=== PATIENT | female | born 1985 | race American Indian/Alaskan Native ===

== ENCOUNTER 2016-11-23 04:44 | Emergency (ER) | payer MEDICAID ==
[2016-11-23 06:07] LABS: Alanine Aminotransferase 36 units/L (7-56); Albumin 3.7 g/dL (3.9-5); Albumin/Globulin Ratio 0.9 %; Alkaline Phosphatase 352 units/L (35-129); Anion Gap 18 mmol/L; BUN/Creatinine Ratio 46.66; Bilirubin,Total 0.4 mg/dL (0.1-1.2); Blood Urea Nitrogen 14 mg/dL (7-17); Calcium 9.1 mg/dL (8.4-10.2); Carbon Dioxide 23 mmol/L (22-30); Chloride 103.7 mmol/L (98-107); Glucose 118 mg/dL (65-100); Lipase 113 units/L (13-60); Potassium 3.5 mmol/L (3.6-5.0); Sodium 141 mmol/L (137-145); Total Protein 7.7 g/dL (6.3-8.2)
[2016-11-23 06:47] LABS: Basophils % (Auto) 0.4 % (0.0-1.8); Eosinophils % (Auto) 0.4 % (0.0-4.3); Hematocrit 36.9 % (30.3-42.9); Hemoglobin 12.3 gm/dl (10.1-14.3); Mean Corpuscular HGB Conc 33 % (30-34); Mean Corpuscular Hemoglobin 27 pg (28-32); Mean Corpuscular Volume 81 fl (79-97); Platelet Count 277 K/mm3 (140-440); Red Blood Count 4.55 M/mm3 (3.65-5.03); Red Cell Distribution Width 13.1 % (13.2-15.2); White Blood Count 6.5 K/mm3 (4.5-11.0)
[2016-11-23] MEDS ORDERED: NACL 0.9% 1000 ML 1,000 ML ONE (08:20)
[2016-11-23] MEDS ORDERED: MORPHINE IV ONE (08:21)
[2016-11-23] MEDS ORDERED: ZOFRAN IV ONE (08:22)
[2016-11-23 08:26] LABS: Bilirubin,Urine NEG (Negative); Blood,Urine LG (Negative); Ketones,Urine TR mg/dL (Negative); Leukocyte Esterase,Urine SM (Negative); Mucus,Urine 1+ /HPF; Nitrite,Urine NEG (Negative); Urobilinogen,Urine < 2.0 mg/dL (<2.0)
[2016-11-23 08:27] LABS: RBC,Urine > 182.0 /HPF (0.0-6.0)
[2016-11-23] MEDS ORDERED: NACL 0.9% 1000 ML 1,000 ML IV ONE ×2 (08:28→08:30)
--- NOTE | 2016-11-23 09:01 | Emergency Department Report ---
HPI - General Chief Complaint: Abdominal Pain Time Seen by Provider: 11/23/16 08:11 - HPI HPI: 31-year-old -[place] female transported by [facility] for complaint of abdominal pains 2 hours. Patient denies any nausea vomiting no diarrhea. Patient reports that the pain woke her up there is nothing that alleviates it nothing that makes it worse. She reports that the pain is sharp and it is under her right rib area. ED Past Medical Hx - Past Medical History Previous Medical History?: No Additional medical history: tachycardia - Surgical History Past Surgical History?: No Additional Surgical History: 3 vagianal births - Social History Smoking Status: Never Smoker Substance Use Type: None - Medications Home Medications: Home Medications Medication Instructions Recorded Confirmed Last Taken Type Oxycodone HCl/Acetaminophen 1 each PO Q6HR PRN #30 tablet 09/13/13 Unknown Rx [Percocet 10-325 mg] Prednisone 20 mg PO QDAY #11 tablet 09/13/13 Unknown Rx Prednisone [predniSONE] 5 mg PO QDAY #11 tablet 09/13/13 Unknown Rx Cyclobenzaprine [Flexeril] 10 mg PO TID PRN #20 tablet 05/12/16 Unknown Rx HYDROcodone/APAP 5-325 [[place] 1 each PO Q6HR PRN #12 tablet 11/23/16 Unknown Rx 5/325] Ibuprofen [Motrin 400 MG tab] 400 mg PO Q8H PRN #20 tablet 11/23/16 Unknown Rx Ondansetron [Zofran Odt] 4 mg PO Q8HR #20 tab.rapdis 11/23/16 Unknown Rx ED Review of Systems ROS: Stated complaint: ABDOMINAL PAIN Other details as noted in HPI Physical Exam - Physical Exam Vital Signs: Vital Signs 11/23/16 05:02 Temperature 98 F Pulse Rate 91 H Respiratory 20 Rate Blood Pressure 178/86 [Right] O2 Sat by Pulse 100 Oximetry Physical Exam: GENERAL: Alert and oriented x3, no apparent distress but seems uncomfortable, Normal Gait, atraumatic. HEAD: Head is normocephalic and a-traumatic. EYES: Extra ocular muscles are intact. Pupils are equal, round, and reactive to light and accommodation. MOUTH:Mouth is well hydrated and without lesions. Tonsils nonerythematous or swollen, Uvula midline, Tongue not elevated. Mucous membranes are moist. Posterior pharynx clear, no exudate or lesions. Patent airways. NECK: Supple. Non edematous, No carotid bruits. No lymphadenopathy or thyromegaly. LUNGS: Symetrical with respiration, No wheezing, no rales or crackles, CTAB. HEART: S1, S2 present, regular rate and rhythm without murmur, no rubs, no gallops. ABDOMEN: No organomegaly was noted,Positive bowel sounds, soft, and non- distended. .Tender to palpation on right upper Quadrants, + CVA tenderness right , left GENITOURINARY: External genitalia without erythema, exudate or discharge. Vaginal vault is without discharge. Cervix is of normal color without lesion. Cervical os is closed. No bleeding noted. Uterus is noted to be of normal size and nontender. No cervical motion tenderness. No masses are palpated. The adnexa are without masses or tenderness. EXTREMITIES/MUSCULOSKELETAL: No cyanosis, clubbing, rash, lesions or edema. Full ROM bilaterally. UE/LE Pulses 2+ bilaterally. LE and UE 5+ strength bilaterally NEUROLOGIC: No focal Deficit, Cranial nerves II through XII are grossly intact. No loss of sensation, PSYCHIATRIC: Mood is congruent with affect, denies suicidal or homicidal ideations. SKIN: Warm and dry, No lesions, No ulceration or induration present ED Course Vital Signs 11/23/16 05:02 Temperature 98 F Pulse Rate 91 H Respiratory 20 Rate Blood Pressure 178/86 [Right] O2 Sat by Pulse 100 Oximetry ED Medical Decision Making - Lab Data Result diagrams: 11/23/16 06:36 11/23/16 05:27 - Medical Decision Making 31 Year old female patient presents today with abdominal pain. Labs reveal elevated alkaline phosphatase 352, potassium 3.5 lipase 113. Patient is in no acute distress at this time. She will be discharged home and encouraged to follow up with a primary care provider. She is encouraged to return to the emergency room for any worsening symptoms. She was given IV fluids and Zofran and morphine and then Dilaudid for pain control she had a ultrasound of the right upper quadrant which showed gallstones sludge or lesion of the gallbladder itself there is no obstruction of the bowel ducts. Consult the doctor Jaspal from surgery he recommended that she follow-up in surgery. Critical care attestation.: If time is entered above; I have spent that time in minutes in the direct care of this critically ill patient, excluding procedure time. ED Disposition Clinical Impression: Right upper quadrant abdominal pain Disposition: DISCHARGED TO HOME OR SELFCARE Is pt being admited?: No Does the pt Need Aspirin: No Condition: Stable Instructions: Abdominal Pain (ED) Additional Instructions: Take pain medication as prescribed. Follow up with surgery. Drink plenty of fluids. Prescriptions: HYDROcodone/APAP 5-325 [[place] 5/325] 1 each PO Q6HR PRN #12 tablet PRN Reason: Pain Ibuprofen [Motrin 400 MG tab] 400 mg PO Q8H PRN #20 tablet PRN Reason: Pain Ondansetron [Zofran Odt] 4 mg PO Q8HR #20 tab.rapdis Referrals: PRIMARY CARE, [Primary Care Provider] - 3-5 Days MARIBETH ESTES MD [Staff Physician] - 3-5 Days Forms: Work/School Release Form(ED)
--- NOTE | 2016-11-23 09:20 | Ultrasound Report ---
Ultrasound right upper quadrant. Findings: The abdominal aorta and liver are normal. There are low level echoes within the gallbladder lumen without acoustic shadowing. The wall of gallbladder is not thickened. The common bile duct is normal in caliber. The right kidney and pancreas are unremarkable. Impression: Gall bladder sludge formation which could obscure small stones. No other significant findings.
[2016-11-23 09:49] VITALS: BP 170/84
[2016-11-23] MEDS ORDERED: DILAUDID IV ONE (10:06)
== END 2016-11-23 11:27 | disposition home or self-care (01) ==
LOC: ED 04:44
DX: R10.11 Right upper quadrant pain (principal)
CPT/HCPCS: 36415; 76705; 80053; 81001; 83690; 84703; 85025; 96361; 96374; 96375; 99284; J1170; J2270; J2405; J7030

== ENCOUNTER 2017-09-16 04:27 | Emergency (ER) | payer SELFPAY ==
[2017-09-16 06:57] VITALS: BP 157/73
[2017-09-16 08:21] LABS: Bacteria,Urine 2+ /HPF (Negative); Bilirubin,Urine NEG (Negative); Blood,Urine NEG (Negative); Color,Urine Yellow (Yellow); Mucus,Urine FEW /HPF; Nitrite,Urine NEG (Negative); Protein,Urine <15 mg/dL mg/dL (Negative)
[2017-09-16 08:49] LABS: Basophils % (Auto) 0.5 % (0.0-1.8); Eosinophils # (Auto) 0.1 K/mm3 (0.0-0.4); Eosinophils % (Auto) 1.7 % (0.0-4.3); Hematocrit 38.4 % (30.3-42.9); Hemoglobin 12.9 gm/dl (10.1-14.3); Lymphocytes # (Auto) 1.6 K/mm3 (1.2-5.4); Lymphocytes % (Auto) 22.9 % (13.4-35.0); Mean Corpuscular HGB Conc 34 % (30-34); Mean Corpuscular Hemoglobin 29 pg (28-32); Mean Corpuscular Volume 87 fl (79-97); Monocytes # (Auto) 0.6 K/mm3 (0.0-0.8); Monocytes % (Auto) 7.9 % (0.0-7.3); Platelet Count 283 K/mm3 (140-440); Red Blood Count 4.42 M/mm3 (3.65-5.03); Red Cell Distribution Width 13.2 % (13.2-15.2)
[2017-09-16 09:11] LABS: Alanine Aminotransferase 11 units/L (7-56); Albumin 3.4 g/dL (3.9-5); BUN/Creatinine Ratio 25; Blood Urea Nitrogen 5 mg/dL (7-17); Calcium 8.9 mg/dL (8.4-10.2); Hemolysis Index 8
== END 2017-09-16 09:00 | disposition left against medical advice (07) ==
LOC: ED 04:27
DX: R10.9 Unspecified abdominal pain (principal); Z53.21 Procedure and treatment not carried out due to patient leaving prior to being seen by health care provider
CPT/HCPCS: 36415; 80053; 81001; 84702; 84703; 85025

== ENCOUNTER 2018-10-05 16:18 | Emergency (ER) | payer MEDICAID, OTHER ==
[2018-10-05] MEDS ORDERED: ULTRAM PO ONE (16:44)
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
--- NOTE | 2018-10-05 18:56 | XRay Report ---
FINAL REPORT EXAM: XR HIP 2-3V RT HISTORY: right hip pain TECHNIQUE: Frontal view of the pelvis and hips and frog-lateral view right hip Comparison: None FINDINGS: There is no evidence of fracture. There is the appearance of mild widening of the pubic symphysis with slight inferior displacement of the left pubis relative to the right. Whether not this is acute or chronic is unclear. The bony structures are otherwise unremarkable. The hip joints are maintained. The soft tissues are unremarkable. IMPRESSION: 1. No evidence of fracture. 2. Mild widening of the pubic symphysis with slight inferior displacement of the left pubis relative to the right. Acute versus chronic. Comparison with previous imaging studies and correlation with cli nical exam will be helpful. 3. Unremarkable appearance of the right hip.
--- NOTE | 2018-10-05 18:58 | XRay Report ---
FINAL REPORT EXAM: XR SHOULDER 2+V RT HISTORY: right shoulder pain TECHNIQUE: Frontal and Y-views right shoulder Comparison: None FINDINGS: There is no evidence of fracture or subluxation. The joint spaces are maintained. The soft tissues are unremarkable. IMPRESSION: 1. No plain film evidence of bony or soft tissue abnormality.
[2018-10-07 12:29] VITALS: BP 132/74
== END 2018-10-05 19:14 | disposition home or self-care (01) ==
LOC: ED 16:18
DX: S46.911A Strain of unspecified muscle, fascia and tendon at shoulder and upper arm level, right arm, initial encounter (principal); S76.011A Strain of muscle, fascia and tendon of right hip, initial encounter; F12.10 Cannabis abuse, uncomplicated; Z88.8 Allergy status to other drugs, medicaments and biological substances; V49.49XA Driver injured in collision with other motor vehicles in traffic accident, initial encounter; Y93.89 Activity, other specified; Y92.89 Other specified places as the place of occurrence of the external cause; Y99.8 Other external cause status

== ENCOUNTER 2019-07-15 10:32 | Inpatient (IN) | payer MEDICAID, OTHER ==
--- NOTE | 2019-07-15 11:19 | Emergency Department Report ---
Blank Doc - Documentation Documentation: 34-year-old female that presents with midsternum chest and heart palpations. Stated has been out of her thyroid medications. This initial assessment/diagnostic orders/clinical plan/treatment(s) is/are subject to change based on patient's health status, clinical progression and re- assessment by fellow clinical providers in the ED. Further treatment and workup at subsequent clinical providers discretion. Patient/guardians urged not to elope from the ED as their condition may be serious if not clinically assessed and managed. Initial orders include: 1- Patient sent to [facility] for further evaluation and treatment 2- labs 3- EKG 4- CXR
--- NOTE | 2019-07-15 11:44 | Emergency Department Report ---
HPI - General Chief Complaint: Dyspnea/Respdistress Time Seen by Provider: 07/15/19 11:17 - HPI HPI: 34-year-old [place] female presents to the emergency department with a 2 day history of fast heartbeat, feeling shaky, some back pain, chest pain and feelings of anxiety. The patient has a history of hyperthyroidism but is not on any medication for it. Her primary care physician is Dr. Manuel Rae but she has not seen them regarding her symptoms. No recent travel or sick contacts at home. She has not taken anything for her symptoms prior to arrival. She denies any cigarette use but does admit to smoking marijuana intermittently. No recent travel or sick contacts at home. ED Past Medical Hx - Past Medical History Previous Medical History?: Yes Additional medical history: Thyroid disease - Surgical History Past Surgical History?: No Additional Surgical History: 3 vagianal births - Social History Smoking Status: Never Smoker Substance Use Type: Marijuana - Medications Home Medications: Home Medications Medication Instructions Recorded Confirmed Last Taken Type No Known Home Medications [No 07/15/19 07/15/19 Unknown History Reported Home Medications] ED Review of Systems ROS: Stated complaint: CHEST PAIN/SOB Other details as noted in HPI Comment: All other systems reviewed and negative Constitutional: denies: chills, fever Eyes: denies: vision change ENT: denies: ear pain, throat pain Respiratory: denies: cough, wheezing Cardiovascular: chest pain, palpitations Gastrointestinal: denies: abdominal pain, vomiting Genitourinary: denies: dysuria, discharge Musculoskeletal: back pain. denies: arthralgia Skin: denies: rash, lesions Neurological: denies: headache, weakness Psychiatric: anxiety Physical Exam - Physical Exam Vital Signs: Vital Signs 07/15/19 11:13 Temperature 97.8 F Pulse Rate 76 Respiratory 20 Rate Blood Pressure 187/89 O2 Sat by Pulse 100 Oximetry Physical Exam: GENERAL: The patient is well-developed well-nourished, but patient appears an xious. HENT: Normocephalic. Atraumatic. Patient has moist mucous membranes. EYES: Extraocular motions are intact. Pupils equal reactive to light bilaterally. NECK: Supple. Trachea is midline. CHEST/LUNGS: Clear to auscultation. There is no respiratory distress noted. HEART/CARDIOVASCULAR: Irregular rhythm. Mild tachycardia. ABDOMEN: Abdomen is soft, nontender. Patient has normal bowel sounds. There is no abdominal distention. SKIN: Skin is warm and dry. NEURO: The patient is awake, alert, and oriented. The patient is cooperative. The patient has no focal neurologic deficits. Normal speech. Cranial nerves II through XII grossly intact. MUSCULOSKELETAL: There is no tenderness or deformity. There is no limitation range of motion. There is no evidence of acute injury. ED Course Vital Signs 07/15/19 11:13 Temperature 97.8 F Pulse Rate 76 Respiratory 20 Rate Blood Pressure 187/89 O2 Sat by Pulse 100 Oximetry ED Medical Decision Making - Lab Data Result diagrams: 07/15/19 11:43 07/15/19 11:43 - EKG Data -: EKG Interpreted by Me - EKG Data When compared to previous EKG there are: previous EKG unavailable Interpretation: other (atrial fibrillation with rate of 123, normal axis, normal intervals) - Radiology Data Radiology results: image reviewed interpreted by me: Chest x-ray does not show any acute process. There are no pleural effusions, obvious pneumonia and there is no pneumothorax. - Medical Decision Making This patient presents to the emergency department with a few days of some chest pain, shortness of breath, palpitations, feeling shaky with some anxiety and even 1 episode of what sounds like a panic attack. On examination heart sounds irregular with some mild tachycardia. Lungs are clear to auscultation. A chest x-ray was done that does not show any pleural effusions, pneumonia, pneumothorax, focal consolidation, or any other acute process. Patient had a negative d-dimer and a negative troponin. The patient's TSH was essentially 0 and the free T4 came back at about 5.5 showing hyperthyroidism. EKG was done that showed new onset atrial fibrillation with RVR and a heart rate of about 125 bpm. Given the patient's symptoms and the new onset of the atrial fibrillation, the patient appears to be in thyrotoxicosis. She was given a dose of Lopressor and will be admitted to the hospital for further evaluation and treatment. Patient was accepted for admission by the hospitalist, Dr Garcia. - Differential Diagnosis thyrotoxicosis, PE, AR, Pneumonia, CHF, Anxiety Critical Care Time: Yes Critical care time in (mins) excluding proc time.: 31 Critical care attestation.: If time is entered above; I have spent that time in minutes in the direct care of this critically ill patient, excluding procedure time. Critical care time was spent on this patient and doing her initial evaluation, multiple re- evaluations, ordering and interpretation of labs and imaging, ordering of antihypertensive and rate control medication, discussion with the hospitalist service, multiple discussions with the patient herself. Critical Care Time: 31 minutes ED Disposition Clinical Impression: Atrial fibrillation with RVR Thyrotoxicosis Qualifiers: Thyrotoxicosis type: unspecified thyrotoxicosis type Thyrotoxic crisis or storm presence: with thyrotoxic crisis or storm Qualified Code(s): E05.91 - Thyrotoxicosis, unspecified with thyrotoxic crisis or storm Hypertension Qualifiers: Hypertension type: essential hypertension Qualified Code(s): I10 - Essential (primary) hypertension Chest pain Qualifiers: Chest pain type: unspecified Qualified Code(s): R07.9 - Chest pain, unspecified Disposition: DC-09 OP ADMIT IP TO THIS HOSP Is pt being admited?: Yes Condition: Serious Time of Disposition: 13:23
[2019-07-15 11:55] LABS: Basophils % (Auto) 0.6 % (0.0-1.8); Eosinophils # (Auto) 0.1 K/mm3 (0.0-0.4); Eosinophils % (Auto) 0.8 % (0.0-4.3); Hemoglobin 12.4 gm/dl (10.1-14.3); Lymphocytes # (Auto) 2.4 K/mm3 (1.2-5.4); Lymphocytes % (Auto) 30.1 % (13.4-35.0); Mean Corpuscular HGB Conc 34 % (30-34); Mean Corpuscular Volume 84 fl (79-97); Monocytes # (Auto) 0.9 K/mm3 (0.0-0.8); Platelet Count 247 K/mm3 (140-440); Red Blood Count 4.42 M/mm3 (3.65-5.03); Red Cell Distribution Width 12.6 % (13.2-15.2)
[2019-07-15 12:14] LABS: BUN/Creatinine Ratio 30; Blood Urea Nitrogen 9 mg/dL (7-17); Calcium 9.7 mg/dL (8.4-10.2); Hemolysis Index 0
--- NOTE | 2019-07-15 12:46 | XRay Report ---
CHEST 2 VIEWS INDICATION: Chest Pain. COMPARISON: None FINDINGS: Support devices: None. Heart: Within normal limits. Lungs/pleura: No acute air space or interstitial disease. No pneumothorax. Additional findings: None. IMPRESSION: Normal chest x-ray. Signer Name: Fabrizio Monzon Jr, MD Signed: 07/15/2019 12:41 PM Workstation Name: [id number]
[2019-07-15] MEDS ORDERED: METOPROLOL TARTRATE 5 MG/5 ML INJ IV ONE ×3 (13:14→23:02)
[2019-07-15] MEDS ORDERED: METOPROLOL TARTRATE 50 MG TAB ONE (14:36)
[2019-07-15] MEDS ORDERED: ZOLPIDEM 5 MG TAB PO PRN (21:42)
--- NOTE | 2019-07-15 22:52 | History and Physical Report ---
History of Present Illness Date of examination: 07/15/19 Date of admission: 07/15/19 13:24 Chief complaint: Palpitations 2 days History of present illness: 34 year old female with history of thyrotoxicosis and non compliant with meds for past few months comes in palpitations tremulousness and anxious feeling.No chest pain.increasingly sweaty.Feels very anxious. Past Medical History Previous Medical History?: Yes Additional medical history: Thyroid disease Surgical History Past Surgical History?: No Additional Surgical History: 3 vaginal births Social History Smoking Status: Never Smoker Substance Use Type: Marijuana Family history Htn Medications Home Medications: Home Medications Medication Instructions Recorded Confirmed Last Taken Type No Known Home Medications [No 07/15/19 07/15/19 Unknown History Reported Home Medications] Review of Systems ROS: Stated complaint: CHEST PAIN/SOB Other details as noted in HPI Comment: All other systems reviewed and negative Constitutional: denies: chills, fever Eyes: denies: vision change ENT: denies: ear pain, throat pain Respiratory: denies: cough, wheezing Cardiovascular: chest pain, palpitations Gastrointestinal: denies: abdominal pain, vomiting Genitourinary: denies: dysuria, discharge Musculoskeletal: back pain. denies: arthralgia Skin: denies: rash, lesions Neurological: denies: headache, weakness Psychiatric: anxiety Medications and Allergies Allergies Allergy/AdvReac Type Severity Reaction Status Date / Time metronidazole [From Flagyl] Allergy Angioedema Verified 05/12/16 14:39 Home Medications Medication Instructions Recorded Confirmed Last Taken Type No Known Home Medications [No 07/15/19 07/15/19 Unknown History Reported Home Medications] Active Meds: Active Medications Zolpidem Tartrate (Ambien) 5 mg PO QHS PRN PRN Reason: Sleep Last Admin: 07/15/19 21:58 Dose: 5 mg Documented by: Exam - Constitutional Vitals: Temp Pulse Resp BP Pulse Ox 97.9 F 113 H 18 143/67 100 07/15/19 20:28 07/15/19 20:28 07/15/19 20:28 07/15/19 20:28 07/15/19 20:28 General appearance: Present: no acute distress, well-nourished - EENT Eyes: Present: PERRL ENT: hearing intact, clear oral mucosa - Neck Neck: Present: supple, normal ROM - Respiratory Respiratory effort: normal Respiratory: bilateral: CTA - Cardiovascular Heart rate: 78 Rhythm: regular Heart Sounds: Present: S1 & S2. Absent: rub, click - Extremities Extremities: no ischemia, pulses intact, pulses symmetrical, No edema Peripheral Pulses: within normal limits - Abdominal General gastrointestinal: Present: soft, non-tender, non-distended, normal bowel sounds Female genitourinary: Present: normal - Rectal Rectal Exam: deferred - Integumentary Integumentary: Present: clear, warm, dry - Musculoskeletal Musculoskeletal: gait normal, strength equal bilaterally - Psychiatric Psychiatric: appropriate mood/affect, intact judgment & insight - Neurologic Neurologic: CNII-XII intact, moves all extremities - Allied Health Allied health notes reviewed: nursing, case management Results - Labs CBC & Chem 7: 07/15/19 11:43 07/15/19 11:43 Labs: Laboratory Last Values WBC 8.1 K/mm3 (4.5-11.0) 07/15/19 11:43 RBC 4.42 M/mm3 (3.65-5.03) 07/15/19 11:43 Hgb 12.4 gm/dl (10.1-14.3) 07/15/19 11:43 Hct 37.0 % (30.3-42.9) 07/15/19 11:43 MCV 84 fl (79-97) 07/15/19 11:43 MCH 28 pg (28-32) 07/15/19 11:43 MCHC 34 % (30-34) 07/15/19 11:43 RDW 12.6 % (13.2-15.2) L 07/15/19 11:43 Plt Count 247 K/mm3 (140-440) 07/15/19 11:43 Lymph % (Auto) 30.1 % (13.4-35.0) 07/15/19 11:43 [place] % (Auto) 11.0 % (0.0-7.3) H 07/15/19 11:43 Eos % (Auto) 0.8 % (0.0-4.3) 07/15/19 11:43 Baso % (Auto) 0.6 % (0.0-1.8) 07/15/19 11:43 Lymph # 2.4 K/mm3 (1.2-5.4) 07/15/19 11:43 [place] # 0.9 K/mm3 (0.0-0.8) H 07/15/19 11:43 Eos # 0.1 K/mm3 (0.0-0.4) 07/15/19 11:43 Baso # 0.0 K/mm3 (0.0-0.1) 07/15/19 11:43 Seg Neutrophils % 57.5 % (40.0-70.0) 07/15/19 11:43 Seg Neutrophils # 4.7 K/mm3 (1.8-7.7) 07/15/19 11:43 D-Dimer < 135.00 ng/mlDDU (0-234) 07/15/19 11:43 Sodium 141 mmol/L (137-145) 07/15/19 11:43 Potassium 3.8 mmol/L (3.6-5.0) 07/15/19 11:43 Chloride 106.2 mmol/L (98-107) 07/15/19 11:43 Carbon Dioxide 23 mmol/L (22-30) 07/15/19 11:43 Anion Gap 16 mmol/L 07/15/19 11:43 BUN 9 mg/dL (7-17) 07/15/19 11:43 Creatinine 0.3 mg/dL (0.7-1.2) L 07/15/19 11:43 Estimated GFR > 60 ml/min 07/15/19 11:43 BUN/Creatinine Ratio 30 % 07/15/19 11:43 Glucose 105 mg/dL (65-100) H 07/15/19 11:43 Calcium 9.7 mg/dL (8.4-10.2) 07/15/19 11:43 Troponin T < 0.010 ng/mL (0.00-0.029) 07/15/19 11:43 TSH < 0.005 mlU/mL (0.270-4.200) L 07/15/19 11:43 Free T4 5.53 ng/dL (0.76-1.46) H 07/15/19 11:43 HCG, Qual Negative (Negative) 07/15/19 11:43 Short CBC 07/15/19 Range/Units 11:43 WBC 8.1 (4.5-11.0) K/mm3 Hgb 12.4 (10.1-14.3) gm/dl Hct 37.0 (30.3-42.9) % Plt Count 247 (140-440) K/mm3 BMP 07/15/19 11:43 Sodium 141 Potassium 3.8 Chloride 106.2 Carbon Dioxide 23 BUN 9 Creatinine 0.3 L Glucose 105 H Calcium 9.7 Cardiac Enzymes 07/15/19 Range/Units 11:43 Troponin T < 0.010 (0.00-0.029) ng/mL Assessment and Plan Advance Directives: Yes (Full code) VTE prophylaxis?: Chemical Plan of care discussed with patient/family: Yes - Patient Problems (1) Thyrotoxicosis Current Visit: Yes Status: Acute Qualifiers: Thyrotoxicosis type: unspecified thyrotoxicosis type Thyrotoxic crisis or storm presence: with thyrotoxic crisis or storm Qualified Code(s): E05.91 - Thyrotoxicosis, unspecified with thyrotoxic crisis or storm Plan to address problem: IV Lopressor for now Propranolol SR 60 mg po q24 started Methimaziole 5mg po q8 started patient to follow with pcp for thyroid scan and ablation as outpatient Has high T4 and very low TSH (2) DVT prophylaxis Current Visit: Yes Status: Acute Plan to address problem: On lovenox and GI prophylaxis
[2019-07-15] MEDS ORDERED: ONDANSETRON 4 MG/2 ML INJ IV PRN (22:54)
[2019-07-15] MEDS ORDERED: HYDROmorphone 1 MG/1 ML INJ IV PRN (22:54)
[2019-07-15] MEDS ORDERED: oxyCODONE /ACETAMINOPHEN 5-325MG TAB PO PRN (22:54)
[2019-07-15] MEDS ORDERED: ACETAMINOPHEN 325 MG TAB PO PRN (22:54)
[2019-07-15] MEDS ORDERED: SODIUM CHLORIDE 0.9% 1000 ML 1,000 ML IV SCH (23:00)
[2019-07-15] MEDS: PROPRANOLOL LA 60 MG CAP PO SCH (23:26)
[2019-07-15] MEDS: methIMAzole 5 MG TAB PO SCH (23:28)
[2019-07-16] MEDS: methIMAzole 5 MG TAB PO SCH ×2 (06:18→14:23)
[2019-07-16 06:49] LABS: Basophils % (Auto) 0.3 % (0.0-1.8); Eosinophils # (Auto) 0.1 K/mm3 (0.0-0.4); Hematocrit 37.5 % (30.3-42.9); Hemoglobin 12.5 gm/dl (10.1-14.3); Lymphocytes # (Auto) 2.6 K/mm3 (1.2-5.4); Mean Corpuscular HGB Conc 33 % (30-34); Mean Corpuscular Volume 83 fl (79-97); Monocytes % (Auto) 14.8 % (0.0-7.3); Platelet Count 255 K/mm3 (140-440); Red Blood Count 4.52 M/mm3 (3.65-5.03); Red Cell Distribution Width 12.4 % (13.2-15.2)
[2019-07-16 07:05] LABS: Alanine Aminotransferase 29 units/L (7-56); Albumin 3.7 g/dL (3.9-5); BUN/Creatinine Ratio 35; Blood Urea Nitrogen 7 mg/dL (7-17); Calcium 9.5 mg/dL (8.4-10.2); Hemolysis Index 16
[2019-07-16 08:27] VITALS: BP 131/75
[2019-07-16] MEDS: PROPRANOLOL LA 60 MG CAP PO SCH (09:46)
[2019-07-16] MEDS ORDERED: FAMOTIDINE 20 MG TAB PO SCH (10:00)
--- NOTE | 2019-07-16 11:36 | Progress Note ---
Hospitalist Physical - Constitutional Vitals: Temp Pulse Resp BP Pulse Ox 98.3 F 111 H 18 131/75 100 07/16/19 04:37 07/16/19 09:46 07/16/19 07:36 07/16/19 09:46 07/16/19 04:37 General appearance: Present: no acute distress, well-nourished Results - Labs CBC & Chem 7: 07/16/19 05:44 07/16/19 05:44 Labs: Laboratory Last Values WBC 6.5 K/mm3 (4.5-11.0) 07/16/19 05:44 RBC 4.52 M/mm3 (3.65-5.03) 07/16/19 05:44 Hgb 12.5 gm/dl (10.1-14.3) 07/16/19 05:44 Hct 37.5 % (30.3-42.9) 07/16/19 05:44 MCV 83 fl (79-97) 07/16/19 05:44 MCH 28 pg (28-32) 07/16/19 05:44 MCHC 33 % (30-34) 07/16/19 05:44 RDW 12.4 % (13.2-15.2) L 07/16/19 05:44 Plt Count 255 K/mm3 (140-440) 07/16/19 05:44 Lymph % (Auto) 40.0 % (13.4-35.0) H 07/16/19 05:44 [place] % (Auto) 14.8 % (0.0-7.3) H 07/16/19 05:44 Eos % (Auto) 2.0 % (0.0-4.3) 07/16/19 05:44 Baso % (Auto) 0.3 % (0.0-1.8) 07/16/19 05:44 Lymph # 2.6 K/mm3 (1.2-5.4) 07/16/19 05:44 [place] # 1.0 K/mm3 (0.0-0.8) H 07/16/19 05:44 Eos # 0.1 K/mm3 (0.0-0.4) 07/16/19 05:44 Baso # 0.0 K/mm3 (0.0-0.1) 07/16/19 05:44 Seg Neutrophils % 42.9 % (40.0-70.0) 07/16/19 05:44 Seg Neutrophils # 2.8 K/mm3 (1.8-7.7) 07/16/19 05:44 D-Dimer < 135.00 ng/mlDDU (0-234) 07/15/19 11:43 Sodium 141 mmol/L (137-145) 07/16/19 05:44 Potassium 4.0 mmol/L (3.6-5.0) 07/16/19 05:44 Chloride 104.9 mmol/L (98-107) 07/16/19 05:44 Carbon Dioxide 22 mmol/L (22-30) 07/16/19 05:44 Anion Gap 18 mmol/L 07/16/19 05:44 BUN 7 mg/dL (7-17) 07/16/19 05:44 Creatinine 0.2 mg/dL (0.7-1.2) L 07/16/19 05:44 Estimated GFR > 60 ml/min 07/16/19 05:44 BUN/Creatinine Ratio 35 % 07/16/19 05:44 Glucose 109 mg/dL (65-100) H 07/16/19 05:44 Hemoglobin A1c 4.7 % (4-6) 07/15/19 11:43 Calcium 9.5 mg/dL (8.4-10.2) 07/16/19 05:44 Total Bilirubin 0.50 mg/dL (0.1-1.2) 07/16/19 05:44 AST 24 units/L (5-40) 07/16/19 05:44 ALT 29 units/L (7-56) 07/16/19 05:44 Alkaline Phosphatase 182 units/L (35-129) H 07/16/19 05:44 Troponin T < 0.010 ng/mL (0.00-0.029) 07/15/19 11:43 Total Protein 6.8 g/dL (6.3-8.2) 07/16/19 05:44 Albumin 3.7 g/dL (3.9-5) L 07/16/19 05:44 Albumin/Globulin Ratio 1.2 % 07/16/19 05:44 TSH < 0.005 mlU/mL (0.270-4.200) L 07/15/19 11:43 Free T4 5.53 ng/dL (0.76-1.46) H 07/15/19 11:43 HCG, Qual Negative (Negative) 07/15/19 11:43 Active Medications - Current Medications Current Medications: Generic Name Dose Route Start Last Admin Trade Name Freq PRN Reason Stop Dose Admin Acetaminophen 650 mg 07/15/19 22:54 Tylenol PO Q4H PRN Pain MILD(1-3)/Fever >100.5/BRITT Famotidine 20 mg 07/16/19 10:00 07/16/19 09:47 Pepcid PO 20 mg BID JESSICA Administration Hydromorphone HCl 0.5 mg 07/15/19 22:54 Dilaudid IV Q3H PRN Pain , Severe (7-10) Sodium Chloride 1,000 mls @ 75 mls/hr 07/15/19 23:00 Nacl 0.9% 1000 Ml IV DIRECT JESSICA Methimazole 5 mg 07/15/19 23:00 07/16/19 06:18 Tapazole PO 5 mg Q8HR JESSICA Administration Ondansetron HCl 4 mg 07/15/19 22:54 Zofran IV Q8H PRN Nausea And Vomiting Oxycodone/Acetaminophen 1 tab 07/15/19 22:54 Percocet 5/325 PO Q6H PRN Pain, Moderate (4-6) Propranolol HCl 60 mg 07/15/19 23:30 07/16/19 09:46 Inderal La PO 60 mg QDAY JESSICA Administration Sodium Chloride 10 ml 07/16/19 10:00 07/16/19 09:47 Sodium Chloride Flush Syringe 10 Ml IV 10 ml BID JESSICA Administration Sodium Chloride 10 ml 07/15/19 22:54 Sodium Chloride Flush Syringe 10 Ml IV PRN PRN LINE FLUSH Zolpidem Tartrate 5 mg 07/15/19 21:42 07/15/19 21:58 Ambien PO 5 mg QHS PRN Administration Sleep
--- NOTE | 2019-07-16 15:01 | Discharge Summary ---
Providers - Providers Date of Admission: 07/15/19 13:24 Attending physician: KYLE JAIN MD Primary care physician: BEKA STAPLES MD Hospitalization Condition: Serious Hospital course: 34-year-old woman with history of hypothyroidism who admits that she self stopped her methimazole. Complaining of palpitations diaphoresis and tremors. She was found to have hyperthyroidism with exacerbation. She was started back on antithyroid medications. She was counseled on adherence to thyroid medications. She is recommended to see her PCP who can recommend her to an controls project engineer for possible thyroid ablation if she is a candidate. Preventative health counseling performed for 17 minutes Diagnosis Thyroid storm Hypothyroidism Nonadherence to medications Disposition: DC-01 TO HOME OR SELFCARE Time spent for discharge: 35 minutes Core Measure Documentation - Palliative Care Palliative Care/ Comfort Measures: Not Applicable - Core Measures Any of the following diagnoses?: none Exam - Constitutional Vitals: Temp Pulse Resp BP Pulse Ox 98.3 F 111 H 18 131/75 100 07/16/19 04:37 07/16/19 09:46 07/16/19 07:36 07/16/19 09:46 07/16/19 04:37 General appearance: Present: no acute distress, well-nourished - EENT Eyes: Present: PERRL ENT: hearing intact, clear oral mucosa - Neck Neck: Present: supple, normal ROM - Respiratory Respiratory effort: normal Respiratory: bilateral: CTA - Cardiovascular Heart Sounds: Present: S1 & S2. Absent: rub, click - Extremities Extremities: pulses symmetrical, No edema Peripheral Pulses: within normal limits - Abdominal General gastrointestinal: Present: soft, non-tender, non-distended, normal bowel sounds Female genitourinary: Present: normal - Integumentary Integumentary: Present: clear, warm, dry - Musculoskeletal Musculoskeletal: gait normal, strength equal bilaterally - Psychiatric Psychiatric: appropriate mood/affect, intact judgment & insight - Neurologic Neurologic: CNII-XII intact, moves all extremities Plan Follow up with: PRIMARY CARE, [Primary Care Provider] - 3-5 Days Prescriptions: Propranolol LA [Inderal LA] 60 mg PO QDAY #30 capsule methIMAzole [Tapazole] 5 mg PO Q8HR #90 tablet
== END 2019-07-16 15:20 | disposition home or self-care (01) | DRG 645 ==
LOC: ED 10:32 → 4A 13:24
PROVIDERS: ADMIT Internal Medicine; ATTEND Internal Medicine
DX: E05.91 Thyrotoxicosis, unspecified with thyrotoxic crisis or storm (principal); I10 Essential (primary) hypertension; I48.91 Unspecified atrial fibrillation; F12.90 Cannabis use, unspecified, uncomplicated; Z91.14 Patient's other noncompliance with medication regimen; Z82.49 Family history of ischemic heart disease and other diseases of the circulatory system
CPT/HCPCS: 36415; 71046; 80048; 80053; 83036; 84439; 84443; 84484; 84703; 85025; 85379; 93005; 93010; G0378

== ENCOUNTER 2020-09-11 12:48 | Emergency (ER) | payer OTHER ==
[2020-09-11 14:43] LABS: Basophils % (Auto) 0.6 % (0.0-1.8); Eosinophils # (Auto) 0.2 K/mm3 (0.0-0.4); Eosinophils % (Auto) 2.8 % (0.0-4.3); Hematocrit 42.9 % (30.3-42.9); Hemoglobin 14.5 gm/dl (10.1-14.3); Lymphocytes # (Auto) 1.9 K/mm3 (1.2-5.4); Lymphocytes % (Auto) 29.2 % (13.4-35.0); Mean Corpuscular HGB Conc 34 % (30-34); Mean Corpuscular Volume 89 fl (79-97); Monocytes # (Auto) 0.5 K/mm3 (0.0-0.8); Monocytes % (Auto) 8.1 % (0.0-7.3); Platelet Count 276 K/mm3 (140-440); Red Blood Count 4.83 M/mm3 (3.65-5.03); Red Cell Distribution Width 13.5 % (13.2-15.2)
[2020-09-11] MEDS ORDERED: ONDANSETRON 4 MG/2 ML INJ ONE (14:51)
[2020-09-11 15:00] LABS: Alanine Aminotransferase 12 units/L (7-56); Albumin 4.2 g/dL (3.9-5); Blood Urea Nitrogen 9 mg/dL (7-17); Calcium 9.6 mg/dL (8.4-10.2); Hemolysis Index 5
[2020-09-11 15:08] LABS: BUN/Creatinine Ratio 18
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
--- NOTE | 2020-09-11 19:50 | Cat Scan Report ---
CT BRAIN: 09/11/2020 INDICATION / CLINICAL INFORMATION: syncope. COMPARISON: None available. FINDINGS: BRAIN/INTRACRANIAL STRUCTURES: Unenhanced CT images of the brain demonstrate no evidence of acute int racranial abnormality. Ventricles and sulci are normal in size and shape. There is no CT evidence of ischemic injury, hemorrhage, or mass. There are no abnormal extra-axial fl uid collections. EXTRACRANIAL STRUCTURES: Unremarkable. IMPRESSION: Negative unenhanced CT of the brain. All CT scans at this location are performed using dose reduction to ALARA by means of automated expos ure control. Signer Name: Stanley Drew MD Signed: 09/11/2020 7:45 PM Workstation Name: [id number]
[2020-09-11 21:10] VITALS: BP 144/86
== END 2020-09-11 21:09 | disposition home or self-care (01) ==
LOC: ED 12:48
DX: R55 Syncope and collapse (principal); F12.10 Cannabis abuse, uncomplicated; Z98.890 Other specified postprocedural states; Z79.899 Other long term (current) drug therapy; Z88.8 Allergy status to other drugs, medicaments and biological substances
CPT/HCPCS: 36415; 70450; 80053; 84439; 84443; 84703; 85025; J2405

== ENCOUNTER 2021-03-04 18:05 | Emergency (ER) | payer OTHER ==
[2021-03-04 19:02] LABS: Hematocrit 40.2 % (30.3-42.9); Mean Corpuscular HGB Conc 35 % (30-34); Mean Corpuscular Volume 90 fl (79-97); Platelet Count 294 K/mm3 (140-440); Red Blood Count 4.45 M/mm3 (3.65-5.03); Red Cell Distribution Width 12.9 % (13.2-15.2)
[2021-03-04 19:27] LABS: Blood Urea Nitrogen 9 mg/dL (7-17); Calcium 9.4 mg/dL (8.4-10.2); Hemolysis Index 5
[2021-03-04 19:58] LABS: BUN/Creatinine Ratio 23
== END 2021-03-05 00:01 | disposition left against medical advice (07) ==
LOC: ED 18:05
DX: R56.9 Unspecified convulsions (principal); Z53.21 Procedure and treatment not carried out due to patient leaving prior to being seen by health care provider
CPT/HCPCS: 36415; 80048; 82962; 85027

== ENCOUNTER 2021-03-26 16:12 | Emergency (ER) | payer OTHER | END 2021-03-26 16:17 | disposition left against medical advice (07) | LOC: ED 16:12 | DX: R04.2 Hemoptysis (principal); Z53.21 Procedure and treatment not carried out due to patient leaving prior to being seen by health care provider ==